=== PATIENT | male | born 1965 | race American Indian/Alaskan Native ===

== ENCOUNTER 2016-11-25 16:02 | Emergency (ER) | payer SELFPAY ==
[2016-11-25 19:29] LABS: Anion Gap 19 mmol/L; BUN/Creatinine Ratio 14.16; Blood Urea Nitrogen 17 mg/dL (9-20); Calcium 9.6 mg/dL (8.4-10.2); Carbon Dioxide 24 mmol/L (22-30); Chloride 100.5 mmol/L (98-107); Glucose 101 mg/dL (75-100); Potassium 4.5 mmol/L (3.6-5.0); Sodium 139 mmol/L (137-145)
[2016-11-25] MEDS ORDERED: TYLENOL PO ONE (19:51)
[2016-11-25 19:55] LABS: Basophils % (Auto) 0.7 % (0.0-1.8); Eosinophils % (Auto) 2.1 % (0.0-4.3); Hemoglobin 16.5 gm/dl (11.8-15.2); Mean Corpuscular HGB Conc 33 % (32-34); Mean Corpuscular Hemoglobin 31 pg (28-32); Mean Corpuscular Volume 95 fl (84-94); Platelet Count 222 K/mm3 (140-440); Red Blood Count 5.27 M/mm3 (3.65-5.03); Red Cell Distribution Width 13.7 % (13.2-15.2); White Blood Count 8.8 K/mm3 (4.5-11.0)
--- NOTE | 2016-11-25 20:49 | Cat Scan Report ---
FINAL REPORT PROCEDURE: CT HEAD/BRAIN WO CON TECHNIQUE: Computerized tomography of the head was performed without contrast material. HISTORY: htn, headache COMPARISON: No prior studies are available for comparison. FINDINGS: No CT evidence of intracranial mass, hemorrhage, acute territorial infarction, or hydrocephalus. The intracranial arteries are symmetric in density. No acute fracture is seen. The visualized paranasal sinuses and mastoids are aerated. IMPRESSION: No CT evidence of acute abnormality
--- NOTE | 2016-11-25 22:11 | Emergency Department Report ---
HPI - General Chief Complaint: High BP Time Seen by Provider: 11/25/16 21:38 - HPI HPI: Patient is a 50-year-old male with a history of high blood pressure was been out of his meds since July 2016 presents to ED complaining of elevated blood pressure related to a generalized type headache. Patient states he does not recall what medication he is on but no seat was a mixture of hydrochlorothiazide. Patient states he is currently does not have any insurance and wanted to get his blood pressure under control. Patient states headache started about 2 days ago. He denies blurry vision, fever, chills, nausea, abdominal pain, chest pain, dizziness. ED Past Medical Hx - Past Medical History Previous Medical History?: Yes Hx Hypertension: Yes (not on meds) - Surgical History Past Surgical History?: No - Social History Smoking Status: Current Every Day Smoker Substance Use Type: None - Medications Home Medications: Home Medications Medication Instructions Recorded Confirmed Last Taken Type HYDROcodone/APAP 7.5-325 [[place] 1 each PO Q8HR PRN #20 tablet 04/10/15 Unknown Rx 7.5-325 mg TAB] Ibuprofen [Motrin 600 MG tab] 600 mg PO Q8H PRN #50 tablet 04/10/15 Unknown Rx Hydrochlorothiazide [HCTZ] 25 mg PO QDAY #40 tablet 11/25/16 Unknown Rx amLODIPine [Norvasc] 10 mg PO DAILY #40 tab 11/25/16 Unknown Rx ED Review of Systems ROS: Stated complaint: BP HIGH/OUT MEDS/HEADACHE Other details as noted in HPI Constitutional: denies: chills, fever Eyes: denies: eye pain, eye discharge, vision change ENT: denies: ear pain, throat pain, dental pain, congestion Respiratory: denies: cough, shortness of breath, wheezing Cardiovascular: denies: chest pain, palpitations Endocrine: no symptoms reported Gastrointestinal: denies: abdominal pain, nausea, diarrhea Genitourinary: denies: urgency, dysuria Musculoskeletal: denies: back pain, joint swelling, arthralgia Skin: denies: rash, lesions Neurological: headache. denies: weakness, numbness, paresthesias, abnormal gait Psychiatric: denies: anxiety, depression Hematological/Lymphatic: denies: easy bleeding, easy bruising Physical Exam - Physical Exam Vital Signs: Vital Signs 11/25/16 11/25/16 18:40 19:48 Temperature 98.7 F Pulse Rate 78 78 Respiratory 18 18 Rate Blood Pressure 169/124 Blood Pressure 179/125 [Left] O2 Sat by Pulse 97 98 Oximetry Physical Exam: GENERAL: Alert and oriented x3, no apparent distress, Normal Gait, atraumatic. HEAD: Head is normocephalic and a-traumatic. EYES: Extra ocular muscles are intact. Pupils are equal, round, and reactive to light and accommodation. NECK: Supple. Non edematous, No carotid bruits. No lymphadenopathy or thyromegaly. No C-spine tenderness LUNGS: Symetrical with respiration, No wheezing, no rales or crackles, CTAB. HEART: S1, S2 present, regular rate and rhythm without murmur, no rubs, no gallops. Non tender to palpation ABDOMEN: No organomegaly was noted,Positive bowel sounds, soft, and non- distended. . Nontender to palpation on all Quadrants, NO CVA tenderness. EXTREMITIES/MUSCULOSKELETAL: No cyanosis, clubbing, rash, lesions or edema. Full ROM bilaterally. UE/LE Pulses 2+ bilaterally. NEUROLOGIC: The patient is cooperative with no focal neurologic deficits. Cranial nerves II through XII are grossly intact. Normal speech. SKIN: Warm and dry, No lesions, No ulceration or induration present. ED Course Vital Signs 11/25/16 11/25/16 18:40 19:48 Temperature 98.7 F Pulse Rate 78 78 Respiratory 18 18 Rate Blood Pressure 169/124 Blood Pressure 179/125 [Left] O2 Sat by Pulse 97 98 Oximetry ED Medical Decision Making - Lab Data Result diagrams: 11/25/16 19:00 11/25/16 19:00 - Medical Decision Making 50-year-old male presents with uncontrolled hypertension ED course: CBC, BMP, CT of the head was ordered. All labs within normal limits CT of the head : normal no acute injury or bleed. Discussed findings with patient. Discussed the patient to take blood pressure medication daily. Discuss referral to primary care physician and upon starting new job in getting insurance to follow up with the primary care physician for blood pressure control. Vital signs are normal patient is no acute distress. He is resting comfortably in the room. Patient received clonidine 0.1 while in ED to be this low pressure. Blood pressure trending downwards prior to discharge. He's alert and oriented 3 understands all instructions given complaints of follow-up Critical care attestation.: If time is entered above; I have spent that time in minutes in the direct care of this critically ill patient, excluding procedure time. ED Disposition Clinical Impression: Uncontrolled hypertension Disposition: DC- TO HOME OR SELFCARE Is pt being admited?: No Does the pt Need Aspirin: No Condition: Stable Instructions: Hypertension (ED) Prescriptions: amLODIPine [Norvasc] 10 mg PO DAILY #40 tab Hydrochlorothiazide [HCTZ] 25 mg PO QDAY #40 tablet Referrals: PRIMARY CARE, [Primary Care Provider] - 3-5 Days [facility] [place] [Outside] - 3-5 Days [facility] [Outside] - 3-5 Days [facility] [Outside] - 3-5 Days Forms: Accompanied Note, Work/School Release Form(ED) Time of Disposition: 22:46
[2016-11-25] MEDS ORDERED: CATAPRES PO ONE (22:53)
[2016-11-25] MEDS ORDERED: CATAPRES ONE (22:54)
[2016-11-25 23:46] VITALS: BP 150/116
== END 2016-11-25 23:50 | disposition home or self-care (01) ==
LOC: ED 16:02
DX: I10 Essential (primary) hypertension (principal); F17.200 Nicotine dependence, unspecified, uncomplicated
CPT/HCPCS: 36415; 70450; 80048; 85025